=== PATIENT | female | born 1995 | race American Indian/Alaskan Native ===

== ENCOUNTER 2019-04-09 17:27 | Emergency (ER) | payer OTHER ==
[2019-04-09 17:53] VITALS: BP 110/57
[2019-04-09 18:06] LABS: HCG Qualitative,Urine Negative (Negative)
[2019-04-09 18:10] LABS: Bacteria,Urine 1+ /HPF (Negative); Bilirubin,Urine NEG (Negative); Blood,Urine NEG (Negative); Color,Urine Yellow (Yellow); Mucus,Urine 2+ /HPF; Protein,Urine <15 mg/dL mg/dL (Negative); Urobilinogen,Urine < 2.0 mg/dL (<2.0)
[2019-04-09 18:21] LABS: Basophils % (Auto) 0.3 % (0.0-1.8); Eosinophils # (Auto) 0.2 K/mm3 (0.0-0.4); Eosinophils % (Auto) 3.9 % (0.0-4.3); Hematocrit 38.3 % (30.3-42.9); Hemoglobin 13.3 gm/dl (10.1-14.3); Lymphocytes % (Auto) 40.1 % (13.4-35.0); Mean Corpuscular HGB Conc 35 % (30-34); Mean Corpuscular Volume 87 fl (79-97); Monocytes # (Auto) 0.4 K/mm3 (0.0-0.8); Monocytes % (Auto) 7.2 % (0.0-7.3); Platelet Count 265 K/mm3 (140-440); Red Blood Count 4.41 M/mm3 (3.65-5.03); Red Cell Distribution Width 16.9 % (13.2-15.2)
[2019-04-09 18:45] LABS: Alanine Aminotransferase 15 units/L (7-56); BUN/Creatinine Ratio 19; Blood Urea Nitrogen 15 mg/dL (7-17); Calcium 9.3 mg/dL (8.4-10.2); Hemolysis Index 2
== END 2019-04-09 18:00 | disposition left against medical advice (07) ==
LOC: ED 17:27
DX: R10.9 Unspecified abdominal pain (principal); Z53.21 Procedure and treatment not carried out due to patient leaving prior to being seen by health care provider
CPT/HCPCS: 36415; 80053; 81001; 81025; 85025; 87076; 87086; 87186

== ENCOUNTER 2022-01-12 10:46 | Emergency (ER) | payer OTHER ==
[2022-01-12 11:21] LABS: HCG Qualitative,Urine Positive (Negative)
[2022-01-12 11:25] LABS: Bilirubin,Urine NEG (Negative); Blood,Urine NEG (Negative); Color,Urine Amber (Yellow); Mucus,Urine 3+ /HPF
--- NOTE | 2022-01-12 11:48 | Emergency Department Report ---
ED Abdominal Pain HPI - General Chief Complaint: Abdominal Pain Stated Complaint: AB PAIN PUI?: No Time Seen by Provider: 01/12/22 11:17 Source: patient Mode of arrival: Ambulatory Limitations: No Limitations - History of Present Illness Initial Comments: This is a 26-year-old female with no past medical history she [id number] who p resents to the ED of unsure gestation complaining of pelvic pain times a week. Patient states that she cannot recall her last menstrual period and is unsure if she is . Patient states that she has had some mild pelvic cramping and nausea in the past week with no vaginal bleeding, fever, chills, or vomiting, dysuria, any other symptoms. - Related Data Previous Rx's Medication Instructions Recorded Last Taken Type Ondansetron [Zofran ODT TAB] 8 mg PO Q8HR #30 tab 01/12/22 Unknown Rx Allergies Allergy/AdvReac Type Severity Reaction Status Date / Time No Known Allergies Allergy Verified 01/12/22 11:42 ED Review of Systems ROS: Stated complaint: AB PAIN Other details as noted in HPI Comment: All other systems reviewed and negative ED Past Medical Hx - Past Medical History Previous Medical History?: No - Surgical History Past Surgical History?: No - Social History Smoking Status: Never Smoker Substance Use Type: None - Medications Home Medications: Home Medications Medication Instructions Recorded Confirmed Last Taken Type Ondansetron [Zofran ODT TAB] 8 mg PO Q8HR #30 tab 01/12/22 Unknown Rx ED Physical Exam - General Limitations: No Limitations General appearance: alert, in no apparent distress - Head Head exam: Present: atraumatic, normocephalic - Eye Eye exam: Present: normal appearance - ENT ENT exam: Present: mucous membranes moist - Neck Neck exam: Present: normal inspection - Respiratory Respiratory exam: Present: normal lung sounds bilaterally. Absent: respiratory distress - Cardiovascular Cardiovascular Exam: Present: regular rate, normal rhythm. Absent: systolic murmur, diastolic murmur, rubs, gallop - GI/Abdominal GI/Abdominal exam: Present: soft, normal bowel sounds. Absent: distended, tenderness, guarding, rebound - Extremities Exam Extremities exam: Present: normal inspection, full ROM - Back Exam Back exam: Present: normal inspection, full ROM. Absent: CVA tenderness (R), CVA tenderness (L) - Neurological Exam Neurological exam: Present: alert, oriented X3 - Psychiatric Psychiatric exam: Present: normal affect, normal mood - Skin Skin exam: Present: warm, dry, intact, normal color. Absent: rash ED Course Vital Signs 01/12/22 01/12/22 01/12/22 10:52 11:39 14:42 Temperature 97.7 F 98.2 F 97.7 F Pulse Rate 72 77 76 Respiratory 16 20 20 Rate Blood Pressure 94/52 Blood Pressure 124/78 124/80 [Right] O2 Sat by Pulse 100 100 100 Oximetry ED Medical Decision Making - Lab Data Result diagrams: 01/12/22 11:29 01/12/22 11:29 - Radiology Data Radiology results: report reviewed, image reviewed ULTRASOUND OBSTETRIC REASON FOR EXAM: pelv pain TECHNIQUE: Transabdominal and transvaginal ultrasound was performed to evaluate a first trimester . COMPARISON: None available. FINDINGS: FINDINGS: The pole, yolk sac, and gestational sac are normal in appearance. [place]-rump length: 5 mm. This corresponds with a gestational age of 6 weeks 1 day. heart rate: 140 bpm Perigestational hemorrhage: No evidence of perigestational hemorrhage on the provided images. MATERNAL FINDINGS: The uterus demonstrates an otherwise unremarkable sonographic appearance. The right ovary demonstrates a normal sonographic appearance. The left ovary demonstrates a normal sonographic appearance. Cul-de-sac: There is no free fluid. IMPRESSION: Viable intrauterine . Gestational age is 6 weeks 1 day by ultrasound. Recommend clinical screening and ultrasound follow-up in the second trimester to screen for anomalies. Signer Name: Alice Leong MD Signed: 01/12/2022 2:44 PM Workstation Name: [id number] Transcribed By: MONICA Dictated By: ALICE LEONG MD Electronically Authenticated By: ALICE LEONG MD Signed Date/Time: 01/12/22 1444 - Medical Decision Making 28-year-old female presents to ED with abd pain in ED course: Pt received ultra sound, CBC, urinalysis, test and quantitative ED All labs within normal limits, Ultrasound shows single IUP gestation at 6 weeks with 140 See reported above Vital signs normalized patient is in no acute distress. I discussed with the patient to follow-up with her [facility]. I discussed all labs and ultrasound findings with the patient. I discussed with the patient that he if bleeding worsens or new symptoms develop to return to ED immediately Critical care attestation.: If time is entered above; I have spent that time in minutes in the direct care of this critically ill patient, excluding procedure time. ED Disposition Clinical Impression: , Abdominal pain during in first trimester Disposition: 01 HOME / SELF CARE / HOMELESS Is pt being admited?: No Does the pt Need Aspirin: No Condition: Stable Instructions: Abdominal Pain During , [id number], First Trimester of , [id number], Abdominal Pain (ED) Additional Instructions: Make sure to follow up with the [facility] as discussed. Start taking vitamins If you have any worsening symptoms or develop new symptoms please return to ED immediately. Prescriptions: Ondansetron [Zofran ODT TAB] 8 mg PO Q8HR #30 tab Referrals: [facility] [Provider Group] - 3-5 Days Forms: Work/School Release Form(ED) Time of Disposition: 14:17
[2022-01-12] MEDS ORDERED: ONDANSETRON 4 MG ODT TAB PO ONE (12:22)
[2022-01-12 13:02] LABS: Basophils % (Auto) 0.4 % (0.0-1.8); Eosinophils % (Auto) 0.7 % (0.0-4.3); Hematocrit 35.1 % (30.3-42.9); Hemoglobin 11.6 gm/dl (10.1-14.3); Lymphocytes # (Auto) 1.2 K/mm3 (1.2-5.4); Lymphocytes % (Auto) 20.8 % (13.4-35.0); Mean Corpuscular HGB Conc 33 % (30-34); Mean Corpuscular Volume 84 fl (79-97); Monocytes # (Auto) 0.5 K/mm3 (0.0-0.8); Monocytes % (Auto) 9.1 % (0.0-7.3); Platelet Count 279 K/mm3 (140-440); Red Blood Count 4.16 M/mm3 (3.65-5.03); Red Cell Distribution Width 16.1 % (13.2-15.2)
[2022-01-12 13:25] LABS: Alanine Aminotransferase 11 units/L (7-56); Albumin 4.2 g/dL (3.9-5); Blood Urea Nitrogen 13 mg/dL (7-17); Calcium 9.4 mg/dL (8.4-10.2); Hemolysis Index 5
[2022-01-12 13:39] LABS: BUN/Creatinine Ratio 19
[2022-01-12 14:43] VITALS: BP 124/80
--- NOTE | 2022-01-12 14:49 | Ultrasound Report ---
ULTRASOUND OBSTETRIC REASON FOR EXAM: pelv pain TECHNIQUE: Transabdominal and transvaginal ultrasound was performed to evaluate a first trimester pre gnancy. COMPARISON: None available. FINDINGS: FINDINGS: The pole, yolk sac, and gestational sac are normal in appearance. [place]-rump length: 5 mm. This corresponds with a gestational age of 6 weeks 1 day. heart rate: 140 bpm Perigestational hemorrhage: No evidence of perigestational hemorrhage on the provided images. MATERNAL FINDINGS: The uterus demonstrates an otherwise unremarkable sonographic appearance. The right ovary demonstrates a normal sonographic appearance. The left ovary demonstrates a normal sonographic appearance. Cul-de-sac: There is no free fluid. IMPRESSION: Viable intrauterine . Gestational age is 6 weeks 1 day by ultrasound. Recommend clinical scr eening and ultrasound follow-up in the second trimester to screen for anomalies. Signer Name: Juvencio Houser MD Signed: 01/12/2022 2:44 PM Workstation Name: [id number]
== END 2022-01-12 14:43 | disposition home or self-care (01) ==
LOC: ED 10:46
DX: O26.891 Other specified pregnancy related conditions, first trimester (principal); R10.9 Unspecified abdominal pain; Z3A.01 Less than 8 weeks gestation of pregnancy
CPT/HCPCS: 36415; 76801; 76817; 80053; 81001; 81025; 85025; 87086; 99284; J3490; Q0162